=== PATIENT | female | born 1975 | race Caucasian/White ===

== ENCOUNTER 2017-08-12 17:28 | Observation (INO) | payer BC ==
[2017-08-12] MEDS ORDERED: ASPIRIN 81 MG TABLET, CHEWABLE PO ONE (17:35)
--- NOTE | 2017-08-12 18:14 | RADIOLOGY REPORT (SQ) ---
EXAM DESCRIPTION: CHEST SINGLE VIEW COMPLETED DATE/TIME: 08/12/2017 6:07 pm REASON FOR STUDY: cp COMPARISON: None. EXAM PARAMETERS: NUMBER OF VIEWS: One view. TECHNIQUE: Single frontal radiographic view of the chest acquired. RADIATION DOSE: NA LIMITATIONS: None. FINDINGS: LUNGS AND PLEURA: No opacities, masses or pneumothorax. No pleural effusion. MEDIASTINUM AND HILAR STRUCTURES: No masses. Contour normal. HEART AND VASCULAR STRUCTURES: Heart normal in size. Normal vasculature. BONES: No acute findings. HARDWARE: None in the chest. OTHER: No other significant finding. IMPRESSION: NO ACUTE RADIOGRAPHIC FINDING IN THE CHEST. TECHNICAL DOCUMENTATION: JOB ID: [id number] [employer]- All Rights Reserved
[2017-08-12 18:37] LABS: ABSOLUTE BASOPHILS # (AUTO) 0.1 10^3/uL (0.0-0.2); ABSOLUTE EOSINOPHILS # (AUTO) 0.1 10^3/uL (0.0-0.6); ABSOLUTE MONOCYTES (AUTO) 0.6 10^3/uL (0.1-1.4); ABSOLUTE NEUT (AUTO) 4.3 10^3/uL (1.7-8.2); BASOPHILS % (AUTO) 1.5 % (0-2); EOSINOPHILS % (AUTO) 1.8 % (0-6); HEMATOCRIT 44.8 % (36.0-47.0); HEMOGLOBIN 15.4 g/dL (12.0-15.5); LYMPHOCYTES % (AUTO) 37.2 % (13-45); MEAN CORPUSCULAR HEMOGLOBIN 30.9 pg (27.0-33.4); MEAN CORPUSCULAR HGB CONC 34.3 g/dL (32.0-36.0); MEAN CORPUSCULAR VOLUME 90 fl (80-97); MONOCYTES % (AUTO) 7.2 % (3-13); PLATELET COUNT 292 10^3/uL (150-450); RED BLOOD COUNT 4.97 10^6/uL (3.72-5.28); RED CELL DISTRIBUTION WIDTH 12.9 % (11.5-14.0); SEGMENTED NEUTROPHILS % (AUTO) 52.3 % (42-78); TOTAL CELLS COUNTED % (AUTO) 100 %; WHITE BLOOD COUNT 8.2 10^3/uL (4.0-10.5)
[2017-08-12 19:03] LABS: ALANINE AMINOTRANSFERASE 88 U/L (9-52); ALBUMIN 4.9 g/dL (3.5-5.0); ALKALINE PHOSPHATASE 48 U/L (38-126); ANION GAP 13 (5-19); ASPARTATE AMINO TRANSFERASE 68 U/L (14-36); BILIRUBIN,DIRECT 0.5 mg/dL (0.0-0.4); BILIRUBIN,TOTAL 0.7 mg/dL (0.2-1.3); BLOOD UREA NITROGEN 15 mg/dL (7-20); CALCIUM 10.3 mg/dL (8.4-10.2); CARBON DIOXIDE 23 mmol/L (22-30); CHLORIDE 104 mmol/L (98-107); CREATINE KINASE 180 U/L (30-135); GLUCOSE 97 mg/dL (75-110); POTASSIUM 4.3 mmol/L (3.6-5.0); SODIUM 140.2 mmol/L (137-145)
[2017-08-12] MEDS ORDERED: LORAZEPAM 1 MG TABLET PO ONE (19:05)
[2017-08-12 19:14] LABS: CREATINE KINASE MB 1.39 ng/mL (<4.55)
[2017-08-12 19:17] LABS: TROPONIN I < 0.012 ng/mL
--- NOTE | 2017-08-12 20:14 | ER Document Report ---
ED General - General Chief Complaint: Chest Pressure Stated Complaint: CHEST PAIN Time Seen by Provider: 08/12/17 17:40 Mode of Arrival: Ambulatory Information source: Patient Notes: 42-year-old female presents with complaints of chest pressure sensation associated with shortness of breath. Patient notes she has PVCs but has never had chest pain before. Patient has a history of hypercholesterolemia. She notes the pressure started last night worsened throughout the day today and has improved prior to arrival here. Patient is here from [place] because her son is having surgery at another hospital. - HPI Onset: Yesterday Onset/Duration: Persistent Quality of pain: Achy Severity: Mild Pain Level: 1 Associated symptoms: Chest pain, Shortness of breath Exacerbated by: Denies Relieved by: Denies Similar symptoms previously: No Recently seen / treated by doctor: No Past Medical History - Social History Smoking Status: Never Smoker Cigarette use (# per day): No Chew tobacco use (# tins/day): No Smoking Education Provided: No Frequency of alcohol use: None Drug Abuse: None Family History: Reviewed & Not Pertinent Patient has suicidal ideation: No Patient has homicidal ideation: No Renal/ Medical History: Denies: Hx Peritoneal Dialysis Past Surgical History: Reports: Hx Appendectomy, Hx Hysterectomy, Hx Tonsillectomy Review of Systems - Review of Systems Notes: REVIEW OF SYSTEMS: CONSTITUTIONAL : Denies fever, chills, or sweats. Denies recent illness. EENT: Denies eye, ear, throat, or mouth pain or symptoms. Denies nasal or sinus congestion or discharge. Denies throat, tongue, or mouth swelling or difficulty swallowing. CARDIOVASCULAR: Admits to chest pain RESPIRATORY: Miss shortness of breath GASTROINTESTINAL: Denies abdominal pain or distention. Denies nausea, vomiting , or diarrhea. Denies blood in vomitus, stools, or per rectum. Denies black, tarry stools. Denies constipation. GENITOURINARY: Denies difficulty urinating, painful urination, burning, frequency, blood in urine, or discharge. FEMALE GENITOURINARY: Denies vaginal bleeding, heavy or abnormal periods, irregular periods. Denies vaginal discharge or odor. MUSCULOSKELETAL: Denies back or neck pain or stiffness. Denies joint pain or swelling. SKIN: Denies rash, lesions or sores. HEMATOLOGIC : Denies easy bruising or bleeding. LYMPHATIC: Denies swollen, enlarged glands. NEUROLOGICAL: Denies confusion or altered mental status. Denies passing out or loss of consciousness. Denies dizziness or lightheadedness. Denies headache. Denies weakness or paralysis or loss of use of either side. Denies problems with gait or speech. Denies sensory loss, numbness, or tingling. Denies seizures. PSYCHIATRIC: Admits to anxiety ALL OTHER SYSTEMS REVIEWED AND NEGATIVE. PHYSICAL EXAMINATION: GENERAL: Well-appearing, well-nourished and in no acute distress. HEAD: Atraumatic, normocephalic. EYES: Pupils equal round and reactive to light, extraocular movements intact, conjunctiva are normal. ENT: Nares patent, oropharynx clear without exudates. Moist mucous membranes. NECK: Normal range of motion, supple without lymphadenopathy LUNGS: Breath sounds clear to auscultation bilaterally and equal. No wheezes rales or rhonchi. HEART: Regular rate and rhythm without murmurs ABDOMEN: Soft, nontender, nondistended abdomen. No guarding, no rebound. No masses appreciated. Female : deferred Musculoskeletal: Normal range of motion, no pitting or edema. No cyanosis. NEUROLOGICAL: Cranial nerves grossly intact. Normal speech, normal gait. Normal sensory, motor exams PSYCH: Normal mood, normal affect. SKIN: Warm, Dry, normal turgor, no rashes or lesions noted. Dictation was performed using [employer] voice recognition software Physical Exam - Vital signs Vitals: Pulse Ox 99 08/12/17 17:35 Course - Re-evaluation Re-evalutation: 08/12/17 23:22 Lab work noted no significant abnormality, d-dimer was negative, patient is low risk for a pulmonary emboli, it is noted that patient was admitted to anxiety and stress given son's surgery, Xanax was given with no improvement of symptoms therefore patient was observed in the hospital overnight - Vital Signs Vital signs: Temp Pulse Resp BP Pulse Ox 98.1 F 20 117/77 98 08/12/17 21:28 08/12/17 23:10 08/12/17 23:10 08/12/17 23:10 - Laboratory Result Diagrams: 08/12/17 18:21 08/12/17 18:21 Laboratory results interpreted by me: 08/12/17 18:21 Est GFR (Non-Af Amer) 54 L Calcium 10.3 H Direct Bilirubin 0.5 H AST 68 H ALT 88 H Creatine Kinase 180 H - Diagnostic Test Radiology reviewed: Image reviewed, Reports reviewed - EKG Interpretation by Me EKG shows normal: Sinus rhythm, [place], Intervals, ST-T Waves - inverted T waves in V1 to V3 Discharge - Discharge Clinical Impression: Hypercholesterolemia Chest pain Qualifiers: Chest pain type: unspecified Qualified Code(s): R07.9 - Chest pain, unspecified Condition: Stable Disposition: ADMITTED OBSERVATION Admitting Provider: Hospitalist Unit Admitted: Telemetry
[2017-08-12] MEDS ORDERED: NITROGLYCERIN 0.4 MG/TAB 25 TAB/BOTTLE SL PRN (20:34)
[2017-08-12 21:53] LABS: CREATINE KINASE MB 1.37 ng/mL (<4.55)
[2017-08-12 21:58] LABS: TROPONIN I < 0.012 ng/mL
[2017-08-12] MEDS: HEPARIN SOD (PORCINE) 5,000 UNIT/ML 1 ML SYRINGE SUBCUT SCH (23:11)
[2017-08-13] MEDS ORDERED: LEVOTHYROXINE SODIUM 0.075 MG TABLET PO ONE ×2 (01:31→01:33)
[2017-08-13] MEDS ORDERED: LEVOTHYROXINE SODIUM 0.1 MG TABLET PO ONE (01:33)
--- NOTE | 2017-08-13 02:47 | PDOC H&P ---
History of Present Illness Admission Date/PCP: 08/12/17 20:16 Patient complains of: Left-sided chest pain History of Present Illness: CLAIR FELIZ is a 42 year old female with a past medical history of diabetes, hypothyroidism, dyslipidemia and obesity. Patient presents with 12 hours of intermittent left-sided chest pain with radiation to the left arm which is aching and cramping in nature waxing and waning from 4-5 to pain-free. Associated with palpitations, and shortness of breath. Symptoms occurred while at rest it is unclear if symptoms are exacerbated by activity but were alleviated by sublingual nitro in the emergency room. Her initial workup was unremarkable, no recent cardiac stress test and referred to the hospitalist for observation. She denies recent change in medications and currently pain-free Past Medical History Endocrine Medical History: Reports: Diabetes Mellitus Type 2, Obesity GI Medical History: Denies: Cirrhosis Psychiatric Medical History: Denies: Substance Abuse, Tobacco Dependency Hematology: Denies: None Past Surgical History Past Surgical History: Reports: Appendectomy, Hysterectomy, Tonsillectomy Social History Information Source: Patient Lives with: Family Smoking Status: Never Smoker Frequency of Alcohol Use: None Drugs: None - Advance Directive Resuscitation Status: Full Code Family History Family History: CAD, Hypertension, Other - Younger sister with coronary artery stenting Parental Family History Reviewed: Yes Children Family History Reviewed: Yes Sibling(s) Family History Reviewed.: Yes Medication/Allergy Home Medications: Levothyroxine Sodium [Synthroid] 175 mcg PO QPM 08/12/17 Nebivolol HCl [Bystolic 5 mg Tablet] 5 mg PO QPM 08/12/17 Allergies/Adverse Reactions: No Known Allergies Allergy (Verified 08/13/17 01:31) Review of Systems Constitutional: ABSENT: chills, fever(s), headache(s), weight gain, weight loss Eyes: ABSENT: visual disturbances Ears: ABSENT: hearing changes Cardiovascular: ABSENT: chest pain, dyspnea on exertion, edema, orthropnea, palpitations Respiratory: ABSENT: cough, hemoptysis Gastrointestinal: ABSENT: abdominal pain, constipation, diarrhea, hematemesis, hematochezia, nausea, vomiting Genitourinary: ABSENT: dysuria, hematuria Musculoskeletal: ABSENT: joint swelling Integumentary: ABSENT: rash, wounds Neurological: ABSENT: abnormal gait, abnormal speech, confusion, dizziness, focal weakness, syncope Psychiatric: ABSENT: anxiety, depression, homidical ideation, suicidal ideation Endocrine: ABSENT: cold intolerance, heat intolerance, polydipsia, polyuria Hematologic/Lymphatic: ABSENT: easy bleeding, easy bruising Physical Exam Vital Signs: Temp Pulse Resp BP Pulse Ox 97.8 F 24 H 109/60 99 08/13/17 00:30 08/13/17 00:01 08/13/17 00:01 08/13/17 00:01 Intake & Output 08/11/17 08/12/17 08/13/17 11:59 11:59 11:59 Weight 117.934 kg General appearance: PRESENT: no acute distress, well-developed, well-nourished Head exam: PRESENT: atraumatic, normocephalic Eye exam: PRESENT: conjunctiva pink, EOMI, PERRLA. ABSENT: scleral icterus Ear exam: PRESENT: normal external ear exam Mouth exam: PRESENT: moist, tongue midline Neck exam: ABSENT: carotid bruit, JVD, lymphadenopathy, thyromegaly Respiratory exam: PRESENT: clear to auscultation shane. ABSENT: rales, rhonchi, wheezes Cardiovascular exam: PRESENT: RRR. ABSENT: diastolic murmur, rubs, systolic murmur Pulses: PRESENT: normal dorsalis pedis pul Vascular exam: PRESENT: normal capillary refill GI/Abdominal exam: PRESENT: normal bowel sounds, soft. ABSENT: distended, guarding, mass, organolmegaly, rebound, tenderness Rectal exam: PRESENT: deferred Extremities exam: PRESENT: full ROM. ABSENT: calf tenderness, clubbing, pedal edema Neurological exam: PRESENT: alert, awake, oriented to person, oriented to place , oriented to time, oriented to situation, CN II-XII grossly intact. ABSENT: motor sensory deficit Psychiatric exam: PRESENT: appropriate affect, normal mood. ABSENT: homicidal ideation, suicidal ideation Skin exam: PRESENT: dry, intact, warm. ABSENT: cyanosis, rash Results Laboratory Results: 08/12/17 21:00 CK-MB (CK-2) 1.37 Troponin I < 0.012 Impressions: Chest X-Ray 08/12/17 17:35 IMPRESSION: NO ACUTE RADIOGRAPHIC FINDING IN THE CHEST. Assessment & Plan - Diagnosis (1) Chest pain Qualifiers: Chest pain type: unspecified Qualified Code(s): R07.9 - Chest pain, unspecified Is this a current diagnosis for this admission?: Yes Plan: there are multiple risk factors for coronary artery disease and subsequently will observe and evaluation of acute coronary syndrome versus coronary artery disease with anginal equivalents. Cardiac monitoring blood pressure Q6 hours , TSH, lipid profile, serial cardiac enzymes and cardiac stress test (2) Diabetes 1.5, managed as type 2 Is this a current diagnosis for this admission?: Yes Plan: Evaluate A1c, sliding scale insulin ordered (3) Hypothyroidism Is this a current diagnosis for this admission?: Yes Plan: Evaluate TSH and continue Synthroid (4) Obesity Is this a current diagnosis for this admission?: Yes Plan: Morbid obesity will evaluate for metabolic cause with evaluation of thyroid function and dietitian consultation (5) Hypercholesterolemia Is this a current diagnosis for this admission?: Yes Plan: Patient on fibrillate for hypertriglyceridemia. Will continue and evaluate lipid profile. - Time Time Spent: 50 to 70 Minutes
[2017-08-13 03:08] LABS: CREATINE KINASE 140 U/L (30-135); TRIGLYCERIDES 297 mg/dL (<150)
[2017-08-13 03:19] LABS: DIRECT LDL 99 mg/dL (<100)
[2017-08-13 03:21] LABS: CREATINE KINASE MB 1.04 ng/mL (<4.55)
[2017-08-13 03:34] LABS: TROPONIN I < 0.012 ng/mL; VLDL CHOLESTEROL 59.4 mg/dL (10-31)
[2017-08-13] MEDS: HEPARIN SOD (PORCINE) 5,000 UNIT/ML 1 ML SYRINGE SUBCUT SCH (06:50)
--- NOTE | 2017-08-13 09:29 | EKG REPORT ---
SEVERITY:- BORDERLINE ECG - SINUS RHYTHM BORDERLINE INFERIOR Q WAVES BORDERLINE T ABNORMALITIES, ANTERIOR LEADS : Confirmed by: Domenico Damon 13-Aug-2017 09:29:05
[2017-08-13] MEDS ORDERED: DOCUSATE SODIUM 100 MG CAPSULE PO SCH (10:00)
[2017-08-13 10:26] LABS: CREATINE KINASE MB 0.95 ng/mL (<4.55)
[2017-08-13 10:29] LABS: TROPONIN I < 0.012 ng/mL
[2017-08-13 11:00] VITALS: BP 117/96
--- NOTE | 2017-08-14 08:53 | EKG REPORT ---
SEVERITY:- ABNORMAL ECG - SINUS RHYTHM PROBABLE INFERIOR INFARCT, AGE INDETERMINATE NONSPECIFIC T ABNORMALITIES, ANTERIOR LEADS : Confirmed by: Domenico Damon 14-Aug-2017 08:53:18
--- NOTE | 2017-08-14 10:21 | Physician Advisory Note ---
Physician Advisor ProgressNote .: Pursuant to the plan for [facility], I have reviewed the medical record for this patient. Physician Advisor Statement: Please don't forget to document "CP, most likely due to " Thanks! CK
== END 2017-08-13 15:46 | disposition home or self-care (01) ==
LOC: ER 17:28 → EH 20:16
PROVIDERS: ADMIT Internal Medicine; ATTEND Internal Medicine
DX: R07.9 Chest pain, unspecified (principal); E11.9 Type 2 diabetes mellitus without complications; E03.9 Hypothyroidism, unspecified; E66.01 Morbid (severe) obesity due to excess calories; R00.2 Palpitations; R06.02 Shortness of breath; E78.00 Pure hypercholesterolemia, unspecified; F41.9 Anxiety disorder, unspecified; Z68.41 Body mass index [BMI] 40.0-44.9, adult; Z90.49 Acquired absence of other specified parts of digestive tract
CPT/HCPCS: 93005 ×2; 99285; 36415 ×2; 82553 ×2; 82550 ×2; 84443; 85025; 80053; 84484 ×2; 85379; 80061; 71045; 93010 ×2; G0378; J3490 ×2